=== PATIENT | female | born 1990 | race American Indian/Alaskan Native ===

== ENCOUNTER 2020-07-17 14:09 | Emergency (ER) | payer OTHER ==
[2020-07-17] MEDS ORDERED: Haloperidol Lactate 5 MG/ML SDV IM ONE (15:01)
[2020-07-17] MEDS ORDERED: diphenhydrAMINE 50 MG/ML SDV IVPUSH ONE (15:01)
[2020-07-17] MEDS ORDERED: LORazepam 2 MG/ML SDV IVPUSH ONE (15:01)
[2020-07-17 16:18] VITALS: BP 113/64; PULSE 66
[2020-07-17] MEDS ORDERED: Sodium Chloride 0.9% 1,000 ML IV ONE (16:50)
[2020-07-17 17:27] LABS: ACETAMINOPHEN 0 ug/mL (10-30 (Therapeutic)); ANION GAP 18.4 mEq/L (7-13); CHLORIDE,CL 104 mmol/L (98-107); SODIUM,NA 141 mmol/L (136-145)
--- NOTE | 2020-07-17 18:44 | EDM.PDOCBH ---
Scribed by Josefa Quiroz 07/17/20 [id number] for Marisel Odonnell NP <Marisel Odonnell - Last Filed: 07/17/20 18:48> ED HPI GENERAL MEDICAL PROBLEM - General Chief Complaint: Behavioral/Psych Stated Complaint: IN BY AMBULANCE [facility] Time Seen by Provider: 07/17/20 14:10 Source of Information: Reports: Patient, Police, RN, RN Notes Reviewed History Limitations: Reports: Other (delusional uncooperative adn combative.) - History of Present Illness INITIAL COMMENTS - FREE TEXT/NARRATIVE: Patient presents to ER per vic DUMONT. Patient reportedly held her daughter hostage and has been paranoid, delusional, and grandiose thoughts. Family reports unknown but suspected underlying psychotic issues. Also suspected meth use. Onset: Today Severity: Severe Improves with: Reports: None Worsens with: Reports: None Associated Symptoms: Reports: No Other Symptoms - Related Data Allergies Allergy/AdvReac Type Severity Reaction Status Date / Time No Known Allergies Allergy Verified 07/17/20 14:27 Home Meds: Home Meds . [No Known Home Meds] 09/16/15 [History] Past Medical History - Past Health History Medical/Surgical History: Denies Medical/Surgical History ED ROS GENERAL - Review of Systems Review Of Systems: Comprehensive ROS is negative, except as noted in HPI. ED EXAM, BEHAVIORAL HEALTH - Physical Exam Exam: See Below Exam Limited By: No Limitations General Appearance: Alert Eye Exam: Bilateral Eye: EOMI, Normal Inspection, PERRL Ears: Normal External Exam, Normal Canal, Hearing Grossly Normal, Normal TMs Nose: Normal Inspection, Normal Mucosa, No Blood Throat/Mouth: Normal Inspection, Normal Lips, Normal Teeth, Normal Gums, Normal Oropharynx, Normal Voice, No Airway Compromise Head: Atraumatic, Normocephalic Neck: Normal Inspection, Supple, Non-Tender, Full Range of Motion Respiratory/Chest: No Respiratory Distress, Lungs Clear, Normal Breath Sounds, No Accessory Muscle Use, Chest Non-Tender Cardiovascular: Normal Peripheral Pulses, Regular Rate, Rhythm, No Edema, No Gallop, No JVD, No Murmur, No Rub GI/Abdominal: Normal Bowel Sounds, Soft, Non-Tender, No Organomegaly, No Distention, No Abnormal Bruit, No Mass (Female) Exam: Deferred Rectal (Female) Exam: Deferred Back Exam: Normal Inspection, Full Range of Motion, NT Extremities: Normal Inspection, Normal Range of Motion, Non-Tender, Normal Capillary Refill, No Pedal Edema Neurological: Alert, CN II-XII Intact, Normal Cognition, Normal Gait, Normal Reflexes, No Motor/Sensory Deficits, Oriented x 3 Psychiatric: Other (delusional paramoid and grandiose thoughts) Skin Exam: Warm, Dry, Intact, Normal color COURSE, BEHAVIORAL HEALTH COMP - Course Re-Assessment/Re-Exam: [facility] in [place] has no beds. [facility] in [place] has no psych beds. [facility] in [place] also has no psych beds. Kay Ashby here from crisis to assist with evaluation and placement. [facility] is accepting the patient. Discharge vs Psych Eval/Treatment:: 07/17/20 18:35 [facility] called, no psych beds. [facility] called, no psych beds. [facility] called, no psych beds. Kay Ashby here to evaluate patient. [facility] contacted. Discussed patient case with Dr. Wayne who agreed to accept the patient for transfer to the [facility] in [place]. Patient will be transferred via ambulance. Departure - Departure Disposition: DC/Tfer to Acute Hospital 02 Condition: Serious Clinical Impression: Hallucinations, Drug abuse, Delusional disorder, Paranoia (psychosis), Psychotic episode - Discharge Information *PRESCRIPTION DRUG MONITORING PROGRAM REVIEWED*: No *COPY OF PRESCRIPTION DRUG MONITORING REPORT IN PATIENT DAJUAN: No Forms: ED Department Discharge, Interfacility Transfer [facility] <Gary Sanchez - Last Filed: 07/18/20 00:50> COURSE, BEHAVIORAL HEALTH COMP - Course Vital Signs: Last Vital Signs Temp 36.4 C 07/17/20 16:16 Pulse 66 07/17/20 16:16 Resp 16 07/17/20 16:16 BP 113/64 07/17/20 16:16 Pulse Ox 98 07/17/20 16:16 Orders, Labs, Meds: Laboratory Tests 07/17/20 07/17/20 07/17/20 Range/Units 16:06 16:43 16:43 WBC 13.0 H (5.0-10.0) 10^3/uL RBC 4.20 (4.2-5.4) 10^6/uL Hgb 13.4 (12.0-16.0) g/dL Hct 38.0 (37.0-47.0) % MCV 90.5 (80-100) fL MCH 31.9 (27.0-34.0) pg MCHC 35.3 H (33.0-35.0) g/dL Plt Count 381 (150-450) 10^3/uL Neut % (Auto) 80.7 H (42.2-75.2) % Lymph % (Auto) 13.9 L (20.5-50.1) % [place] % (Auto) 5.1 (2-8) % Eos % (Auto) 0.2 L (1.0-3.0) % Baso % (Auto) 0.1 (0.0-1.0) % Sodium 141 (136-145) mmol/L Potassium 3.4 L (3.5-5.1) mmol/L Chloride 104 (98-107) mmol/L Carbon Dioxide 22 (21-32) mmol/L Anion Gap 18.4 H (7-13) mEq/L BUN 20 H (7-18) mg/dL Creatinine 0.93 (0.55-1.02) mg/dL Est Cr Clr Drug Dosing 86.80 mL/min Estimated GFR (MDRD) > 60 BUN/Creatinine Ratio 21.5 (No establ ref range) Glucose 89 (74-99) mg/dL Calcium 9.2 (8.5-10.1) mg/dL Total Bilirubin 1.1 H (0.2-1.0) mg/dL AST 20 (15-37) U/L ALT 25 (14-59) U/L Alkaline Phosphatase 92 (46-116) U/L Total Protein 7.6 (6.4-8.2) g/dL Albumin 4.1 (3.4-5.0) g/dL Globulin 3.5 Albumin/Globulin Ratio 1.2 Urine Color (YELLOW) Urine Appearance (CLEAR) Urine pH (5.0-9.0) Ur Specific [place] (1.005-1.030) Urine Protein (NEGATIVE) Urine Glucose (UA) (NEGATIVE) Urine Ketones (NEGATIVE) Urine Occult Blood (NEGATIVE) Urine Nitrite (NEGATIVE) Urine Bilirubin (NEGATIVE) Urine Urobilinogen (0.2-1.0) mg/dL Ur Leukocyte Esterase (NEGATIVE) Urine RBC /HPF Urine WBC (0-5/HPF) /HPF Ur Epithelial Cells (NOT SEEN) /HPF Urine Bacteria (0-FEW/HPF) /HPF Urine Mucus (NOT SEEN) /LPF Urine Yeast (NOT SEEN) /HPF Urine HCG, Qual Salicylates (2.8-20(Therapeutic)) mg/dL Urine Opiates Screen (NEGATIVE) Ur Oxycodone Screen (NEGATIVE) Urine Methadone Screen (NEGATIVE) Acetaminophen 0 L (10-30 (Therapeutic)) ug/mL Ur Barbiturates Screen (NEGATIVE) U Tricyclic Antidepress (NEGATIVE) Ur Phencyclidine Scrn (NEGATIVE) Ur Amphetamine Screen (NEGATIVE) U Methamphetamines Scrn (NEGATIVE) Urine MDMA Screen (NEGATIVE) U Benzodiazepines Scrn (NEGATIVE) Urine Cocaine Screen (NEGATIVE) U Marijuana (THC) Screen (NEGATIVE) COVID-19 (GLADIS) Negative (NEGATIVE) 07/17/20 07/17/20 07/17/20 Range/Units 16:43 17:56 17:56 WBC (5.0-10.0) 10^3/uL RBC (4.2-5.4) 10^6/uL Hgb (12.0-16.0) g/dL Hct (37.0-47.0) % MCV (80-100) fL MCH (27.0-34.0) pg MCHC (33.0-35.0) g/dL Plt Count (150-450) 10^3/uL Neut % (Auto) (42.2-75.2) % Lymph % (Auto) (20.5-50.1) % [place] % (Auto) (2-8) % Eos % (Auto) (1.0-3.0) % Baso % (Auto) (0.0-1.0) % Sodium (136-145) mmol/L Potassium (3.5-5.1) mmol/L Chloride (98-107) mmol/L Carbon Dioxide (21-32) mmol/L Anion Gap (7-13) mEq/L BUN (7-18) mg/dL Creatinine (0.55-1.02) mg/dL Est Cr Clr Drug Dosing mL/min Estimated GFR (MDRD) BUN/Creatinine Ratio (No establ ref range) Glucose (74-99) mg/dL Calcium (8.5-10.1) mg/dL Total Bilirubin (0.2-1.0) mg/dL AST (15-37) U/L ALT (14-59) U/L Alkaline Phosphatase (46-116) U/L Total Protein (6.4-8.2) g/dL Albumin (3.4-5.0) g/dL Globulin Albumin/Globulin Ratio Urine Color (YELLOW) Urine Appearance (CLEAR) Urine pH (5.0-9.0) Ur Specific [place] (1.005-1.030) Urine Protein (NEGATIVE) Urine Glucose (UA) (NEGATIVE) Urine Ketones (NEGATIVE) Urine Occult Blood (NEGATIVE) Urine Nitrite (NEGATIVE) Urine Bilirubin (NEGATIVE) Urine Urobilinogen (0.2-1.0) mg/dL Ur Leukocyte Esterase (NEGATIVE) Urine RBC /HPF Urine WBC (0-5/HPF) /HPF Ur Epithelial Cells (NOT SEEN) /HPF Urine Bacteria (0-FEW/HPF) /HPF Urine Mucus (NOT SEEN) /LPF Urine Yeast (NOT SEEN) /HPF Urine HCG, Qual Negative Salicylates 3.6 (2.8-20(Therapeutic)) mg/dL Urine Opiates Screen Negative (NEGATIVE) Ur Oxycodone Screen Negative (NEGATIVE) Urine Methadone Screen Negative (NEGATIVE) Acetaminophen (10-30 (Therapeutic)) ug/mL Ur Barbiturates Screen Negative (NEGATIVE) U Tricyclic Antidepress Negative (NEGATIVE) Ur Phencyclidine Scrn Negative (NEGATIVE) Ur Amphetamine Screen Positive H (NEGATIVE) U Methamphetamines Scrn Positive H (NEGATIVE) Urine MDMA Screen Negative (NEGATIVE) U Benzodiazepines Scrn Positive H (NEGATIVE) Urine Cocaine Screen Negative (NEGATIVE) U Marijuana (THC) Screen Positive H (NEGATIVE) COVID-19 (GLADIS) (NEGATIVE) 07/17/20 Range/Units 17:56 WBC (5.0-10.0) 10^3/uL RBC (4.2-5.4) 10^6/uL Hgb (12.0-16.0) g/dL Hct (37.0-47.0) % MCV (80-100) fL MCH (27.0-34.0) pg MCHC (33.0-35.0) g/dL Plt Count (150-450) 10^3/uL Neut % (Auto) (42.2-75.2) % Lymph % (Auto) (20.5-50.1) % [place] % (Auto) (2-8) % Eos % (Auto) (1.0-3.0) % Baso % (Auto) (0.0-1.0) % Sodium (136-145) mmol/L Potassium (3.5-5.1) mmol/L Chloride (98-107) mmol/L Carbon Dioxide (21-32) mmol/L Anion Gap (7-13) mEq/L BUN (7-18) mg/dL Creatinine (0.55-1.02) mg/dL Est Cr Clr Drug Dosing mL/min Estimated GFR (MDRD) BUN/Creatinine Ratio (No establ ref range) Glucose (74-99) mg/dL Calcium (8.5-10.1) mg/dL Total Bilirubin (0.2-1.0) mg/dL AST (15-37) U/L ALT (14-59) U/L Alkaline Phosphatase (46-116) U/L Total Protein (6.4-8.2) g/dL Albumin (3.4-5.0) g/dL Globulin Albumin/Globulin Ratio Urine Color Asya (YELLOW) Urine Appearance Slightly cloudy (CLEAR) Urine pH 6.0 (5.0-9.0) Ur Specific [place] >= 1.030 (1.005-1.030) Urine Protein 100 H (NEGATIVE) Urine Glucose (UA) Negative (NEGATIVE) Urine Ketones Negative (NEGATIVE) Urine Occult Blood Large H (NEGATIVE) Urine Nitrite Negative (NEGATIVE) Urine Bilirubin Small H (NEGATIVE) Urine Urobilinogen 1.0 (0.2-1.0) mg/dL Ur Leukocyte Esterase Negative (NEGATIVE) Urine RBC 40-50 H /HPF Urine WBC 5-10 H (0-5/HPF) /HPF Ur Epithelial Cells Many H (NOT SEEN) /HPF Urine Bacteria Many H (0-FEW/HPF) /HPF Urine Mucus Moderate H (NOT SEEN) /LPF Urine Yeast Moderate H (NOT SEEN) /HPF Urine HCG, Qual Salicylates (2.8-20(Therapeutic)) mg/dL Urine Opiates Screen (NEGATIVE) Ur Oxycodone Screen (NEGATIVE) Urine Methadone Screen (NEGATIVE) Acetaminophen (10-30 (Therapeutic)) ug/mL Ur Barbiturates Screen (NEGATIVE) U Tricyclic Antidepress (NEGATIVE) Ur Phencyclidine Scrn (NEGATIVE) Ur Amphetamine Screen (NEGATIVE) U Methamphetamines Scrn (NEGATIVE) Urine MDMA Screen (NEGATIVE) U Benzodiazepines Scrn (NEGATIVE) Urine Cocaine Screen (NEGATIVE) U Marijuana (THC) Screen (NEGATIVE) COVID-19 (GLADIS) (NEGATIVE) Medications Discontinued Medications Generic Name Dose Route Start Last Admin Trade Name Freq PRN Reason Stop Dose Admin Diphenhydramine HCl 50 mg 07/17/20 15:01 07/17/20 15:12 Benadryl IVPUSH 07/17/20 15:02 50 mg ONETIME ONE Administration Haloperidol Lactate 5 mg 07/17/20 15:01 07/17/20 15:12 Haldol IM 07/17/20 15:02 5 mg ONETIME ONE Administration Sodium Chloride 1,000 mls @ 999 mls/hr 07/17/20 16:50 07/17/20 16:54 Normal Saline IV 07/17/20 17:50 999 mls/hr ONETIME ONE Administration Lorazepam 2 mg 07/17/20 15:01 07/17/20 15:12 Ativan IVPUSH 07/17/20 15:02 2 mg ONETIME ONE Administration Departure - Departure Time of Disposition: 19:40 Sepsis Event Note (ED) - Focused Exam Vital Signs: Vital Signs Temp Pulse Resp BP Pulse Ox 07/17/20 16:16 36.4 C 66 16 113/64 98 I have read and agree with the documentation that has been completed regarding this visit. By signing this record, I attest that the documentation was completed in my physical presence and is an accurate record of the encounter.
== END 2020-07-17 19:40 ==
LOC: DL.ED 14:09
DX: F22 Delusional disorders (principal); F19.10 Other psychoactive substance abuse, uncomplicated
CPT/HCPCS: 36415; 80053; 80305-QW; 80307; 81001; 81025; 85025; 96361; 96372; 96374; 96375; 99284; 99285-25; J1200; J1630; J2060; J7030; U0002

== ENCOUNTER 2025-06-02 19:16 | Emergency (ER) | payer MEDICAID, OTHER ==
[2025-06-02] MEDS: Amoxicillin/Clavulanate K 875-125 MG Tab PO ONE (19:21)
[2025-06-02] MEDS ORDERED: [UNRECOGNIZED DRUG - OTHER] IM ONE (19:25)
[2025-06-02] MEDS ORDERED: RABIES IMMUNE GLOBULIN IM ONE (19:25)
[2025-06-02] MEDS: Diphtheria,Pertussis(Acell),Tetanus Vaccine 0.5 ML Syringe IM ONE (19:39)
[2025-06-02] MEDS ORDERED: RABIES IMMUNE GLOBULIN 300 UNIT/ML IM ONE (20:10)
[2025-06-02 20:32] VITALS: BP 107/85; PULSE 59
[2025-06-02] MEDS: Rabies Vaccine (Avian) 2.5 Unit Inj Kit IM ONE (20:59)
[2025-06-02] MEDS: RABIES IMMUNE GLOBULIN 300 UNIT/ML IM ONE (21:18)
== END 2025-06-02 22:10 | disposition home or self-care (01) ==
LOC: DL.ED 19:16
DX: S61.051A Open bite of right thumb without damage to nail, initial encounter (principal); F17.210 Nicotine dependence, cigarettes, uncomplicated; Z23 Encounter for immunization; W54.0XXA Bitten by dog, initial encounter; Y93.89 Activity, other specified
CPT/HCPCS: 12002; 73130; 90375; 90471; 90472; 90675; 90715; 96372; 99282; 99283; A9270; J2003